=== PATIENT | male | born 1990 | race Caucasian/White ===

== ENCOUNTER 2022-04-21 15:26 | Emergency (ER) | payer MEDICAID ==
[~2022-04-21] VITALS: Ht 180.3 cm; Wt 128.6 kg
[~2022-04-21 15:26] MED LIST: FAMO20TA8 PO; GUAN1TAB17 PO
[2022-04-21 15:38] VITALS: BP 170/103
[2022-04-21] MEDS ORDERED: ketorolac tromethamine 15mg/ml inj. IM ONE (16:45)
[2022-04-21] MEDS ORDERED: HYDR-3965 PO (16:46)
[2022-04-21] MEDS ORDERED: ONDA4TAB12 PO (16:46)
== END 2022-04-21 17:16 | disposition home or self-care (01) ==
LOC: ER 15:27
DX: S92.414A Nondisplaced fracture of proximal phalanx of right great toe, initial encounter for closed fracture (principal); M79.674 Pain in right toe(s); R05.9 Cough, unspecified; Z72.89 Other problems related to lifestyle; Z98.890 Other specified postprocedural states; Z88.2 Allergy status to sulfonamides; Z88.8 Allergy status to other drugs, medicaments and biological substances; Z79.899 Other long term (current) drug therapy; X58.XXXA Exposure to other specified factors, initial encounter; Y93.89 Activity, other specified; Y92.89 Other specified places as the place of occurrence of the external cause; Y99.8 Other external cause status
CPT/HCPCS: 73660; 96372; 99283; J1885; L4360